=== PATIENT | female | born 1990 | race Caucasian/White ===

== ENCOUNTER 2016-11-20 00:19 | Observation (INO) | payer SELFPAY ==
[~2016-11-20] VITALS: Ht 170.2 cm; Wt 93.0 kg
[2016-11-20] MEDS ORDERED: ZOFRAN8 MG PO (00:49)
[2016-11-20 01:08] LABS: BASO % 0.3 % (0.0-2.0); EOS # 0.2 (0.0-0.7); EOS % 1.3 % (0-4.0); HEMATOCRIT 39.9 % (37.0-47.0); HEMOGLOBIN 13.2 g/dl (12.5-16.0); LYMPH # 2.8 (1.2-3.4); LYMPH % 17.9 % (20.0-51.0); MEAN CELL VOLUME 91 fl (80.0-100.0); MEAN CORPUSCULAR HEMOGLOBIN 30 pg (27.0-31.0); MEAN CORPUSCULAR HGB CONC 33 g/dl (33.0-37.0); MEAN PLATELET VOLUME 10.9 fl (7.4-10.4); MONO # 0.6 (0.1-0.6); MONO % 4.1 % (1.7-9.3); PLATELET COUNT 355 K/mm3 (130-400); REDCELL DISTRIBUTION WIDTH-CV 13.1 % (11.5-14.5); WHITE BLOOD COUNT 15.7 K/mm3 (4.8-10.8)
[2016-11-20 01:15] LABS: ALBUMIN 4.2 gm/dL (3.5-5.0); BILIRUBIN,TOTAL 0.4 mg/dL (0.0-1.0); CALCIUM 9.2 mg/dL (8.4-10.2); CREATININE, serum 0.71 mg/dL (0.52-1.25); POTASSIUM 3.8 mmol/L (3.4-5.0); TOTAL PROTEIN 7.6 gm/dL (6.4-8.2)
[2016-11-20 04:06] VITALS: BP 118/75; PULSE 102; TEMP 98.3
[2016-11-20] MEDS ORDERED: NORCO 325 MG-7.1 TAB PO (22:40)
== END 2016-11-20 16:30 | disposition home or self-care (01) ==
LOC: COL.ER 00:19 → SURG 02:59
PROVIDERS: Emergency Medicine
DX: K80.00 Calculus of gallbladder with acute cholecystitis without obstruction (principal)
CPT/HCPCS: G0378; J1170; J1885; J1956; J2175; J2270; J2405; J7030; J7120

== ENCOUNTER 2016-11-20 22:31 | Observation (INO) | payer OTHER ==
[~2016-11-20] VITALS: Ht 170.2 cm; Wt 91.6 kg
[~2016-11-20 22:31] MED LIST: ZOFRAN8 MG PO
[2016-11-20] MEDS ORDERED: NORCO 325 MG-7.1 TAB PO (22:40)
[2016-11-20 23:15] LABS: BASO % 0.2 % (0.0-2.0); EOS % 0.1 % (0-4.0); GRAN # 14.7 (1.4-6.5); GRAN % 80.3 % (42.2-75.2); HEMATOCRIT 37.7 % (37.0-47.0); HEMOGLOBIN 12.6 g/dl (12.5-16.0); LYMPH # 2.4 (1.2-3.4); LYMPH % 13.2 % (20.0-51.0); MEAN CELL VOLUME 89 fl (80.0-100.0); MEAN CORPUSCULAR HEMOGLOBIN 30 pg (27.0-31.0); MEAN CORPUSCULAR HGB CONC 33 g/dl (33.0-37.0); MEAN PLATELET VOLUME 11.1 fl (7.4-10.4); MONO # 1.1 (0.1-0.6); MONO % 5.8 % (1.7-9.3); PLATELET COUNT 345 K/mm3 (130-400); RED BLOOD COUNT 4.25 M/mm3 (4.10-5.30); REDCELL DISTRIBUTION WIDTH-CV 13.2 % (11.5-14.5); WHITE BLOOD COUNT 18.3 K/mm3 (4.8-10.8)
[2016-11-20 23:27] LABS: ADJUSTED CALCIUM 8.8 mg/dL (8.4-10.2); ALBUMIN 4.2 gm/dL (3.5-5.0); BILIRUBIN,TOTAL 0.8 mg/dL (0.0-1.0); CREATININE, serum 0.74 mg/dL (0.52-1.25); POTASSIUM 3.4 mmol/L (3.4-5.0); TOTAL PROTEIN 7.5 gm/dL (6.4-8.2)
[2016-11-21] VITALS (13 sets, daily range): BP systolic 90–127; BP diastolic 46–65; PULSE 70–88; TEMP 97.2–100.7
[2016-11-22 02:26] VITALS: BP 104/57; PULSE 83; TEMP 98.2
[2016-11-22 05:14] VITALS: BP 99/48; PULSE 74; TEMP 98
[2016-11-22 08:54] VITALS: BP 109/69; PULSE 84; TEMP 99.1
[2016-11-22 13:03] VITALS: BP 113/63; PULSE 88; TEMP 98.5
== END 2016-11-22 18:00 | disposition home or self-care (01) ==
LOC: COL.ER 22:31 → SURG 23:46 → SDCO 23:46 → SURG 23:47 → SDCO 11-21 00:47 → SURG 11-21 00:47 → SDCO 11-21 00:48 → SURG 11-22 18:00
PROVIDERS: Emergency Medicine
DX: K80.00 Calculus of gallbladder with acute cholecystitis without obstruction (principal)
CPT/HCPCS: G0378; J1100; J1170; J1885; J1956; J2405; J2550; J2704; J3010; J7030; J7042; J7120